=== PATIENT | female | born 1950 | race Caucasian/White ===

== ENCOUNTER 2022-05-16 00:50 | Observation (INO) ==
[2022-05-16 01:25] LABS: ABS Eosinophils 0.1 10^3/ul (0-0.6); ABS Lymphocytes 1.4 10^3/ul (1.0-4.8); ABS Monocytes 0.9 10^3/ul (0-0.8); Eosinophil % 0.5 %; Hematocrit 44 % (35-47); Hemoglobin 14.4 g/dL (12.0-16.0); Lymphocyte % 11.6 %; Mean Corpuscular HGB Conc 33 g/dL (31-36); Mean Corpuscular Hemoglobin 29 pg (27-31); Mean Corpuscular Volume 89 fL (80-97); Mean Platelet Volume 7.5 fL (7.4-10.4); Nucleated Red Blood Cells % 0.1; Platelet Count 285 10^3/uL (150-450); Red Blood Count 4.94 10^6 /uL (3.70-4.87); Red Cell Distribution Width 14 % (10-15); White Blood Count 12.4 10^3/uL (3.5-10.8)
[2022-05-16 01:34] LABS: INR 1.1 (0.88-1.18)
[2022-05-16] MEDS ORDERED: NS 0.9% 1000 ml BAG 1,000 ML IV ONE (01:34)
[2022-05-16 02:04] LABS: Albumin 4.2 g/dL (3.2-5.2); Albumin/Globulin Ratio 1.6 (1-3); Calcium 9.4 mg/dL (8.6-10.3); Creatinine, Serum 0.82 mg/dL (0.51-0.95); Globulin 2.6 g/dL (2-4); Total Bilirubin 0.7 mg/dL (0.2-1.0); Total Protein 6.8 g/dL (6.4-8.9)
[2022-05-16 02:34] LABS: Potassium 3.7 mmol/L (3.5-5.0)
[2022-05-16 02:45] LABS: High Sensitivity Troponin 1 Hr 8 pg/mL (<15)
[2022-05-16] MEDS ORDERED: Al Hydrox/Mg Hydrox/Simet LIQ 30 ML UDC PO PRN (02:56)
[2022-05-16 02:59] LABS: Alcohol, S < 13 mg/dL (<13); Magnesium 2.4 mg/dL (1.9-2.7)
[2022-05-16] MEDS ORDERED: Iohexol 350 (CONTRAST) 500 ML MDV IV ONE (03:04)
[2022-05-16 03:15] LABS: TSH Ultra Thyroid Stim Horm 0.98 mcIU/mL (0.34-5.60)
[2022-05-16] MEDS ORDERED: hydrALAZINE 20 mg/ml 1 ML Vial IV IV SLOW PU PRN (03:56)
[2022-05-16] MEDS: Enoxaparin 40 MG/0.4 ML SYR SUBCUT SCH (07:54)
[2022-05-16] MEDS ORDERED: Albuterol HFA INHALER 8 gm MDI INH PRN (08:52)
[2022-05-17] MEDS: Enoxaparin 40 MG/0.4 ML SYR SUBCUT SCH (04:33)
[2022-05-17 07:05] LABS: Hematocrit 43 % (35-47); Hemoglobin 14.5 g/dL (12.0-16.0); Mean Corpuscular HGB Conc 34 g/dL (31-36); Mean Corpuscular Hemoglobin 30 pg (27-31); Mean Corpuscular Volume 90 fL (80-97); Mean Platelet Volume 7.7 fL (7.4-10.4); Platelet Count 235 10^3/uL (150-450); Red Blood Count 4.83 10^6 /uL (3.70-4.87); Red Cell Distribution Width 14 % (10-15); White Blood Count 6.8 10^3/uL (3.5-10.8)
[2022-05-17 07:53] LABS: Calcium 9.3 mg/dL (8.6-10.3); Creatinine, Serum 0.77 mg/dL (0.51-0.95); Potassium 3.8 mmol/L (3.5-5.0); eGFR CKD-EPI 80.9 (>60)
[2022-05-17] MEDS: Polyethylene Glycol 3350 17 GM PACKET PO SCH ×2 (11:09→21:46)
[2022-05-17 13:40] LABS: Urine Appearance Cloudy; Urine Bilirubin Negative (Negative); Urine Blood 3+ (Negative); Urine Color Yellow; Urine Glucose Negative (Negative); Urine Ketones 1+ (Negative); Urine Nitrite Negative (Negative); Urine Protein Negative (Negative); Urine Specific Gravity 1.018 (1.002-1.030); Urine Urobilinogen Negative (Negative)
[2022-05-17 13:46] LABS: Urine Bacteria Absent (Absent); Urine Red Blood Cell 3+(>10/hpf) (Absent); Urine Squamous Epithelial Cell Present (Absent); Urine White Blood Cell 3+(>20/hpf) (Absent)
[2022-05-17] MEDS ORDERED: Sulfamethox/Trimethoprim DS TAB 800/160 mg PO SCH (15:00)
[2022-05-17] MEDS: Sulfamethox/Trimethoprim DS TAB 800/160 mg PO SCH (21:47)
[2022-05-18] MEDS: Enoxaparin 40 MG/0.4 ML SYR SUBCUT SCH (06:32)
[2022-05-18] MEDS ORDERED: Aspirin EC 81 mg TAB.EC (enteric coated) PO SCH (09:00)
[2022-05-18 09:45] LABS: ABS Basophils 0.1 10^3/ul (0-0.2); ABS Eosinophils 0.4 10^3/ul (0-0.6); ABS Lymphocytes 2.4 10^3/ul (1.0-4.8); ABS Monocytes 0.8 10^3/ul (0-0.8); ABS Neutrophils 4.2 10^3/ul (1.5-7.7); Eosinophil % 4.7 %; Hematocrit 42 % (35-47); Hemoglobin 13.7 g/dL (12.0-16.0); Lymphocyte % 30.7 %; Mean Corpuscular HGB Conc 33 g/dL (31-36); Mean Corpuscular Hemoglobin 29 pg (27-31); Mean Corpuscular Volume 88 fL (80-97); Mean Platelet Volume 7.9 fL (7.4-10.4); Nucleated Red Blood Cells % 0.1; Platelet Count 246 10^3/uL (150-450); Red Blood Count 4.76 10^6 /uL (3.70-4.87); Red Cell Distribution Width 14 % (10-15); White Blood Count 7.9 10^3/uL (3.5-10.8)
[2022-05-18 10:01] LABS: Calcium 9.4 mg/dL (8.6-10.3); Creatinine, Serum 0.88 mg/dL (0.51-0.95); Magnesium 2.2 mg/dL (1.9-2.7); eGFR CKD-EPI 68.9 (>60)
[2022-05-18] MEDS: Polyethylene Glycol 3350 17 GM PACKET PO SCH (10:56)
[2022-05-18] MEDS: Sulfamethox/Trimethoprim DS TAB 800/160 mg PO SCH (10:59)
[2022-05-18 18:44] VITALS: BP 147/97
== END 2022-05-18 15:47 | disposition swing bed (61) ==
LOC: EDHOLD 00:50 → ED 00:50 → SUATTDRO 02:47 → EDHOLD 12:25 → MEDTELE 13:05
PROVIDERS: ADMIT Internal Medicine; ATTEND Internal Medicine

== ENCOUNTER 2022-05-18 16:36 | Inpatient (IN) ==
[2022-05-18] MEDS ORDERED: Al Hydrox/Mg Hydrox/Simet LIQ 30 ML UDC PO PRN (16:47)
[2022-05-18] MEDS ORDERED: Albuterol HFA INHALER 8 gm MDI INH PRN (16:53)
[2022-05-18] MEDS ORDERED: hydrALAZINE 20 mg/ml 1 ML Vial IV IV SLOW PU PRN (16:54)
[2022-05-18] MEDS: ACTUA INH SCH (19:43)
[2022-05-18] MEDS: BUDESONIDE GLYCOPYR FORMOTEROL INH SCH (19:43)
[2022-05-18] MEDS: Polyethylene Glycol 3350 17 GM PACKET PO SCH (20:56)
[2022-05-19] MEDS: ACTUA INH SCH ×2 (08:12→19:44)
[2022-05-19] MEDS: BUDESONIDE GLYCOPYR FORMOTEROL INH SCH ×2 (08:12→19:44)
[2022-05-19] MEDS: Enoxaparin 40 MG/0.4 ML SYR SUBCUT SCH (08:46)
[2022-05-19] MEDS: Polyethylene Glycol 3350 17 GM PACKET PO SCH ×2 (08:46→20:21)
[2022-05-19] MEDS: Aspirin EC 81 mg TAB.EC (enteric coated) PO SCH (08:50)
[2022-05-19] MEDS ORDERED: Enoxaparin 40 MG/0.4 ML SYR SUBCUT SCH (09:00)
[2022-05-20] MEDS: Aspirin EC 81 mg TAB.EC (enteric coated) PO SCH (09:01)
[2022-05-20] MEDS: Enoxaparin 40 MG/0.4 ML SYR SUBCUT SCH (09:01)
[2022-05-20] MEDS: Polyethylene Glycol 3350 17 GM PACKET PO SCH ×2 (09:02→20:35)
[2022-05-20] MEDS: ACTUA INH SCH ×2 (09:03→19:15)
[2022-05-20] MEDS: BUDESONIDE GLYCOPYR FORMOTEROL INH SCH ×2 (09:03→19:15)
[2022-05-21] MEDS: ACTUA INH SCH (08:19)
[2022-05-21] MEDS: BUDESONIDE GLYCOPYR FORMOTEROL INH SCH (08:19)
[2022-05-21] MEDS: Enoxaparin 40 MG/0.4 ML SYR SUBCUT SCH (09:52)
[2022-05-21] MEDS: Polyethylene Glycol 3350 17 GM PACKET PO SCH ×2 (09:52→22:21)
[2022-05-21] MEDS: Aspirin EC 81 mg TAB.EC (enteric coated) PO SCH (09:52)
[2022-05-21] MEDS: Mometasone/Formoter 200/5 MDI INH SCH (20:38)
[2022-05-22] MEDS: Enoxaparin 40 MG/0.4 ML SYR SUBCUT SCH (07:27)
[2022-05-22] MEDS: Polyethylene Glycol 3350 17 GM PACKET PO SCH ×2 (07:27→19:40)
[2022-05-22] MEDS: Aspirin EC 81 mg TAB.EC (enteric coated) PO SCH (07:27)
[2022-05-22] MEDS: SPIRIVA Respimat (tiotropium) 2.5 mcg/inh Inhaler INH SCH (07:33)
[2022-05-22] MEDS: Mometasone/Formoter 200/5 MDI INH SCH ×2 (07:33→20:43)
[2022-05-23] MEDS: Enoxaparin 40 MG/0.4 ML SYR SUBCUT SCH (07:43)
[2022-05-23] MEDS: Aspirin EC 81 mg TAB.EC (enteric coated) PO SCH (07:44)
[2022-05-23] MEDS: Polyethylene Glycol 3350 17 GM PACKET PO SCH ×2 (07:44→20:23)
[2022-05-23] MEDS: Mometasone/Formoter 200/5 MDI INH SCH ×2 (07:44→19:46)
[2022-05-23] MEDS: SPIRIVA Respimat (tiotropium) 2.5 mcg/inh Inhaler INH SCH (07:45)
[2022-05-24] MEDS: Aspirin EC 81 mg TAB.EC (enteric coated) PO SCH (08:45)
[2022-05-24] MEDS: Polyethylene Glycol 3350 17 GM PACKET PO SCH ×2 (08:46→22:08)
[2022-05-24] MEDS: Enoxaparin 40 MG/0.4 ML SYR SUBCUT SCH (08:46)
[2022-05-24] MEDS: Mometasone/Formoter 200/5 MDI INH SCH ×2 (09:22→21:19)
[2022-05-24] MEDS: SPIRIVA Respimat (tiotropium) 2.5 mcg/inh Inhaler INH SCH (09:22)
[2022-05-25] MEDS: Mometasone/Formoter 200/5 MDI INH SCH ×3 (07:43→20:15)
[2022-05-25] MEDS: SPIRIVA Respimat (tiotropium) 2.5 mcg/inh Inhaler INH SCH (07:43)
[2022-05-25] MEDS: Enoxaparin 40 MG/0.4 ML SYR SUBCUT SCH (08:35)
[2022-05-25] MEDS: Polyethylene Glycol 3350 17 GM PACKET PO SCH ×3 (08:35→21:35)
[2022-05-25] MEDS: Aspirin EC 81 mg TAB.EC (enteric coated) PO SCH (08:35)
[2022-05-26] MEDS: SPIRIVA Respimat (tiotropium) 2.5 mcg/inh Inhaler INH SCH (07:31)
[2022-05-26] MEDS: Mometasone/Formoter 200/5 MDI INH SCH ×2 (07:31→19:21)
[2022-05-26] MEDS: Polyethylene Glycol 3350 17 GM PACKET PO SCH ×2 (08:22→19:42)
[2022-05-26] MEDS: Enoxaparin 40 MG/0.4 ML SYR SUBCUT SCH (08:30)
[2022-05-26] MEDS: Aspirin EC 81 mg TAB.EC (enteric coated) PO SCH (08:30)
[2022-05-27] MEDS: Mometasone/Formoter 200/5 MDI INH SCH (07:41)
[2022-05-27] MEDS: SPIRIVA Respimat (tiotropium) 2.5 mcg/inh Inhaler INH SCH (07:42)
[2022-05-27] MEDS: Aspirin EC 81 mg TAB.EC (enteric coated) PO SCH (08:42)
[2022-05-27] MEDS: Enoxaparin 40 MG/0.4 ML SYR SUBCUT SCH (08:42)
[2022-05-27] MEDS: Polyethylene Glycol 3350 17 GM PACKET PO SCH (08:43)
[2022-05-27 11:20] VITALS: BP 177/113
== END 2022-05-27 16:15 | disposition home or self-care (01) | DRG 559 ==
LOC: MEDTELE 16:36 → SUATTDRO 16:36 → MED 05-25 10:23
PROVIDERS: ADMIT Internal Medicine; ATTEND Internal Medicine